=== PATIENT | female | born 2000 | race Caucasian/White ===

== ENCOUNTER 2024-03-29 23:36 | Emergency (ER) | payer OTHER, SELFPAY ==
[2024-03-29 23:37] VITALS: BP 97/64; PULSE 99; RESP 20; TEMP 35.8; O2SAT 97; BMI 19.3
[2024-03-29] MEDS: Ondansetron 4 MG/2 ML Vial IV (23:57)
[2024-03-29] MEDS: 0.9% Normal Saline (1000mL) 1,000 ML 999 ML IV (23:57)
--- NOTE | 2024-03-30 | EX.ED.SAOD ---
HPI History of Present Illness Chief Complaint: ETOH Intox Informant: patient Narrative Narrative: 23-year-old female college student was drinking wine and tequila tonight, drank too much and has been vomiting. No loss of consciousness. She denies any abdominal pain or injury/fall. This feels very nauseated. PFSH PFSH Medical History no medical history no medical history Home Medications ?Medication ?Instructions ?Recorded ?Last Taken ?Type NK 03/29/24 Unknown History Allergy/AdvReac Type Severity Reaction Status Date / Time tree nut Allergy Severe Anaphylaxis Verified 03/29/24 23:40 Surgical History no surgical history Social History (Updated 03/30/24 @ 00:[address] Jarrod Burrell MD) Smoking Status: Never smoker substance use type: does not use ROS ROS ED Constitutional Constitutional ED: Denies chills or fever(s) Eyes Eyes: Denies change in vision or diplopia ENT ENT ED: Denies rhinorrhea or sore throat Cardiovascular Cardiovascular: Denies chest pain or palpitations Respiratory/Chest Respiratory/Chest: Denies cough or dyspnea Gastrointestinal Gastrointestinal: Reports nausea and vomiting; Denies abdominal pain or diarrhea Genitourinary Genitourinary ED: Denies dysuria or hematuria Musculoskeletal Musculoskeletal: Denies back pain or neck pain Integumentary Denies abscess or rash Neurologic Neurologic: Denies headache(s), paresthesias or weakness Psychiatric Psychiatric: Denies suicidal thoughts EXAM Physical Exam Const Vital Signs: 03/29/24 23:37 Temperature 96.5 F L Temperature Source Temporal Pulse Rate 99 Respiratory Rate 20 H Blood Pressure 97/64 Blood Pressure Mean 75 Pulse Ox 97 Positive well nourished and well developed General Appearance ED: well developed and NAD HEENT Reports moist mucous membranes normocephalic and atraumatic Eyes PERRL and EOMs intact bilaterally Neck full ROM and supple Resp normal respiratory effort and clear to auscultation bilaterally Cardio regular rate, regular rhythm and no murmurs Rate: Negative for tachycardic GI non-tender and non-distended Auscultation: normoactive bowel sounds Palpation: soft Back/Spine no CVA tenderness General Back: other FROM Extremity normal to inspection General Extremety ED: Negative for edema, pulses abnormal or tenderness General Extremity: Negative for edema or pulses abnormal Neuro oriented x3, CN's II-XII intact bilaterally and no sensory deficits noted Sensorium / Orientation: awake and alert Motor Exam: strength 5/5 throughout Psych Psych Narrative: Intoxicated, alert, pleasant and cooperative Skin no rashes or lesions noted and no wounds MDM MDM MDM Narrative Medical decision making narrative: Patient was given a liter of IV fluid as well as some Zofran she did well and felt better, she has a friend here to take her back to her dorm, she is tolerating oral fluids. Discharge Plan Triage Chief Complaint: ETOH Intox ED Provider: Jarrod Burrell Dx/Rx/DC Orders Clinical Impression: Alcohol intoxication Instructions: ED Alcohol Intoxication Prescriptions: No Action NK Primary Care Provider: Care Physician,No Primary Print Language: Macedonian Disposition Disposition: Home, Self Care
[2024-03-30 01:23] VITALS: BP 93/42; PULSE 101; RESP 16; TEMP 36.1; O2SAT 100
== END 2024-03-30 01:28 | disposition home or self-care (01) ==
PROVIDERS: Emergency Provider Emergency Medicine; Visit Provider Emergency Medicine
DX: F10.129 Alcohol abuse with intoxication, unspecified (principal); Y90.9 Presence of alcohol in blood, level not specified
CPT/HCPCS: 96361; 96374; 99284; A4216; J2405